=== PATIENT | male | born 1960 | race Caucasian/White ===

== ENCOUNTER 2020-12-14 08:56 | Day surgery (SDC) | payer BC ==
[2020-12-11 12:43] VITALS: BMI 32.1
[~2020-12-14 08:56] MED LIST: LACTATED RINGERS 1,000 ML IV SCH
[2020-12-14] MEDS ORDERED: LIDOCAINE 1% (10MG/ML) FOR IV START INTRADERMA ONE (09:25)
[2020-12-14] MEDS ORDERED: SODIUM CHLORIDE 0.9% 1,000 ML IV ONE (09:25)
[2020-12-14 09:47] VITALS: TEMP 97.5
[2020-12-14] MEDS ORDERED: PROPOFOL 10 MG/ML 20 ML VIAL IV ONE (10:32)
[2020-12-14] MEDS ORDERED: LIDOCAINE 1% INJ 10MG/ML (20 ML MDV) ONE (10:32)
--- NOTE | 2020-12-14 10:49 | P.PCN ---
Date of Procedure: 12/14/20 Procedure(s) Performed: BRIEF HISTORY: Patient is 60-year-old pleasant white male scheduled for an elective colonoscopy as a part of screening for colorectal neoplasia. PROCEDURE PERFORMED: Colonoscopy with snare polypectomy. PREOPERATIVE DIAGNOSIS: Screening for colon cancer IV sedation per Anesthesia. PROCEDURE: After informed consent was obtained, the patient, was brought into the endoscopy unit. IV sedation was administered by Anesthesia under continuous monitoring. Digital rectal examination was normal. Initially the Olympus CF-160 flexible video colonoscope was then inserted in the rectum, gradually advanced into the cecum without any difficulty. Careful examination was performed as the scope was gradually being withdrawn. Ileocecal valve and the appendiceal orifice were visualized and appeared normal. Prep was excellent. Mucosa of the cecum, . In the ascending colon there was a 3 mm polyp that was removed by snare polypectomy. The rest of the ascending colon, transverse colon, descending colon, appeared normal. In the sigmoid: There were 3 polyps measuring between 4-5 mm in size all of which were removed by snare polypectomy. In the proximal rectum there was a 5 mm sessile polyp removed by snare polypectomy. Scattered left-sided diverticulosis seen. Rest of the sigmoid colon, and rectum appeared normal. Retroflexion was performed in the rectum and no lesions were seen. The patient tolerated the procedure well. IMPRESSION: 3 mm ascending colon polyp status post polypectomy 5 mm 3 sigmoid colon polyps status post snare polypectomy 5 mm sessile proximal rectal polyp status post polypectomy scattered sigmoid diverticulosis RECOMMENDATIONS: Findings of this examination were discussed with the patient as well as his family. he was advised to follow with the biopsy results. If the biopsy shows an adenoma he can have a repeat colonoscopy in 3-5 years. 60
[2020-12-14 11:21] VITALS: BP 124/83; PULSE 64; RESP 16
== END 2020-12-14 11:27 | disposition home or self-care (01) ==
LOC: ORWHC2ENDO 08:56
PROVIDERS: ATTEND Internal Medicine Gastroenterology
DX: Z12.11 Encounter for screening for malignant neoplasm of colon (principal); K63.5 Polyp of colon; K62.1 Rectal polyp; K57.30 Diverticulosis of large intestine without perforation or abscess without bleeding; I25.2 Old myocardial infarction; I10 Essential (primary) hypertension; I25.10 Atherosclerotic heart disease of native coronary artery without angina pectoris; E78.5 Hyperlipidemia, unspecified; K21.9 Gastro-esophageal reflux disease without esophagitis; Z79.82 Long term (current) use of aspirin; Z79.899 Other long term (current) drug therapy; Z88.8 Allergy status to other drugs, medicaments and biological substances; Z95.5 Presence of coronary angioplasty implant and graft
CPT/HCPCS: 88305; 45385; J2001; J2704